=== PATIENT | female | born 1975 | race Caucasian/White ===

== ENCOUNTER 2020-09-07 09:28 | Emergency (ER) | payer BC, SELFPAY ==
--- NOTE | ~2020-09-07 | XR_ITS ---
EXAMINATION: XR CHEST CLINICAL INFORMATION: Chest pain. COMPARISON: Chest 08/26/2016 TECHNIQUE: Frontal view of the chest was obtained. FINDINGS: The lungs are well-expanded with platelike atelectasis in lingula. Rest of lungs are clear. The heart size and pulmonary vascularity is normal. No gross bony abnormality seen.. XR/XR chest 1V IMPRESSION: Platelike atelectasis in the lingula.
--- NOTE | ~2020-09-07 | CT_ITS ---
EXAMINATION: CT ANGIOGRAM OF THE CHEST WITH AND WITHOUT CONTRAST (CT PULMONARY ANGIOGRAM FOR PE) CLINICAL INFORMATION: Shortness of breath, bilateral leg swelling. 4 days . COMPARISON: Chest radiographs 09/07/2020, CT abdomen 03/12/2019 TECHNIQUE: Prior to contrast administration, noncontrast localization images were obtained. Subsequently, multidetector volumetric imaging was performed from the thoracic inlet to below the diaphragms following the administration of 71 mL Omnipaque 350 intravenous contrast. Sagittal, coronal, and MIP oblique sagittal reformatted images were obtained on the CT workstation, uploaded to PACS, and reviewed. This CT examination was performed using dose optimization techniques as appropriate, variously including the following: *Automated exposure control *Adjustment of mA and/or kV according to patient size (this includes techniques or standardized protocols for targeted exams where dose is matched to indication/reason for exam; i.e. extremities or head) *Use of iterative reconstruction technique Total exam dose-length product 580 mGy-cm FINDINGS: QUALITY OF STUDY/CONTRAST BOLUS: Satisfactory. PULMONARY ARTERIES: No central or segmental pulmonary emboli. THORACIC AORTA: No aneurysm or dissection. LUNG: Central airways are clear. There is no airspace consolidation or groundglass opacity. There is disc atelectasis left anterior lateral base. PLEURA: No pleural effusion or pneumothorax. MEDIASTINUM: Normal heart size. No pericardial effusion. No hilar or mediastinal lymphadenopathy. No evidence of septal bowing or right heart strain. There is some ghosting artifact around the root of the pulmonary artery and aorta, consistent with pulsation artifact. CHEST WALL/AXILLA: No axillary or internal mammary lymphadenopathy. OSSEOUS STRUCTURES: No acute or suspicious osseous abnormality. UPPER ABDOMEN: Unremarkable. No reflux of contrast into the hepatic veins to suggest elevated right heart pressures. CT/CT angio chest PE protocol IMPRESSION: 1. No pulmonary embolism. No thoracic aortic dissection. 2. Disc atelectasis left anterior base. No airspace consolidation, pneumothorax, or effusion. VTE: negative
--- NOTE | ~2020-09-07 | US_ITS ---
EXAMINATION: US VENOUS ULTRASOUND WITH DOPPLER LOWER EXTREMITY, BILATERAL CLINICAL INFORMATION: Shortness of breath and bilateral leg swelling. Status post 4 days . COMPARISON: None TECHNIQUE: Ultrasound of the deep veins is performed from the hip to the calf with compression sonography and color and pulse Doppler assessment. Spectral analysis with color-flow imaging is performed. FINDINGS: RIGHT: There is normal venous compression and respiratory variation and augmented flow. The visualized common femoral vein, superficial femoral vein, profunda femoral vein, popliteal vein, and the trifurcation region shows no evidence of deep venous thrombosis. The peroneal vein is not seen There is no significant popliteal fossa cyst. LEFT: There is normal venous compression and respiratory variation and augmented flow. The visualized common femoral vein, superficial femoral vein, profunda femoral vein, popliteal vein, and the trifurcation region shows no evidence of deep venous thrombosis. The peroneal vein is not seen. There is no significant popliteal fossa cyst. If the patient's symptoms persist, followup ultrasound in 5 days 7 days might be of value to exclude proximal propagation from a non-visualized calf vein. US/US venous duplex LE BI IMPRESSION: No DVT demonstrated in the bilateral lower extremity. Bilateral peroneal veins are not seen.
[2020-09-07 09:29] VITALS: BP 153/73; PULSE 105; RESP 18; TEMP 36.8; O2SAT 97; BMI 39.2
--- NOTE | 2020-09-07 10:05 | ECG_ITS ---
Test Reason : HEADACHE Blood Pressure : / mmHG Vent. Rate : 087 BPM Atrial Rate : 087 BPM P-R Int : 128 ms QRS Dur : 078 ms QT Int : 346 ms P-R-T Axes : 055 058 033 degrees QTc Int : 416 ms Normal sinus rhythm Normal ECG No previous ECGs available Referred By: Sheron Hammond Electronically Signed By:CHIQUITA ROBERTS
--- NOTE | 2020-09-07 10:16 | ED.HA ---
HPI - Headache General Chief Complaint: Headache Stated Complaint: headache Time Seen by Provider: 09/07/20 10:01 Source: patient Mode of arrival: ambulatory Limitations: no limitations History of Present Illness HPI Narrative: 45-year-old female who is [id number] s/p 4 days delivered at gestational age 38-1/2 weeks at [facility] on 09/04/2019 who had an epidural with a PMHx of asthma and kidney stones denying any other significant medical history although has not seen a PCP in over 1-2 years presenting to the ED with complaints of occipital headache worse with bending over forward where she reports the pain as a throbbing/tingling sensation with associated blurry vision, shortness of breath, epigastric abdominal pain and bilateral leg swelling since Saturday. Reports that she was seen by Anesthesia on Saturday when she reported her headache at [facility] and they reported that this was not consistent with post epidural headache therefore they gave her a Fioricet and she reports she had mild symptomatic relief although discontinue the Fioricet due to she is . MD elicited complaint: headache Pertinent past history: other (Status post 4 days) Onset (ago): day(s) (Three days) Onset description: gradually Location: occipital Quality & Timing: other (Throbbing/tingling sensation) Exacerbating factors: other (Bending over forward patient reports headache feels like it shifts when I bend over forward ) Relieving factors: other (mild relief with Fioricet) Context: recent spinal/epidural procedure (Although patient cannot recall if it started after the epidural procedure) Associated symptoms: other (Blurry vision, shortness of breath, epigastric abdominal pain and bilateral lower extremity edema) Treatments prior to arrival: none Related Data Allergies Allergy/AdvReac Type Severity Reaction Status Date / Time adhesive [ADHESIVE] Allergy Intermediate RASH Unverified 03/24/20 17:27 cobalt [COBALT] Allergy Unknown RASH Unverified 03/24/20 17:27 adhesives/ tapes Allergy Unknown rash Uncoded 07/22/18 00:00 Review of Systems Review of Systems: Constitutional : No changes in activity, No lethargy, No recent prior head injury, No agitation ENT/Mouth : No Ear Pain, No Nasal discharge/drainage Eyes: + Blurry Vision, No Eye Pain, No Swelling, No Redness, No Foreign Body Cardiovascular : + SOB, No Chest Pain, No CARRERA, No orthopnea Respiratory : No Cough Gastrointestinal : + epigastric abdominal pain, No Nausea, No Vomiting Genitourinary : No Dysuria, No Urinary Frequency, No Urinary Incontinence, No Urgency, No Flank Pain Musculoskeletal : + Joint swelling, No joint pain, No neck stiffness, No back pain/injury Skin : No lacerations Neuro : + Headache, No unsteady gait, No Paresthesias, No Loss of Consciousness, No altered mental status, No dizziness Denies past medical history of HIV, recent trauma, coagulopathy, new medication, URI symptoms, close contacts with similar symptoms, tick bite, or known CO2 exposure. Yes all other systems are reviewed and are negative [facility] Past Medical History Attestation statement: The following information was validated with the patient. Social History Social History Alcohol intake: never Smoking Status: Never smoker Physical Exam Vital Signs: Vital Signs: Last Vital Signs Temp 98.2 F 09/07/20 09:29 Pulse 91 09/07/20 12:49 Resp 16 09/07/20 12:49 BP 127/70 09/07/20 12:49 Pulse Ox 98 09/07/20 12:49 Body Mass Index 39.2 Vital signs have been reviewed as normal and appeared to be correct. Blood pressure hypertensive at 153/73 . Heart rate tachycardic at 105. Respiration rate normal. Temperature normal. Oxygen saturation normal. Appearance: Alert. Oriented X3. No acute distress. Head: Normal external exam. Normocephalic. Atraumatic. Able to rotate head bilaterally. Eyes: PERRLA. EOMI. No nystagmus noted. Conjunctiva and sclera normal. Eyelids normal. Corneal reflex normal. ENT: EAC normal. TM's Normal. Hearing normal. Pharynx normal. Uvula midline. tongue midline. Moist mucous membranes. No trismus noted. No drooling noted. No muffled voice noted. Neck: Normal inspection. Neck supple. FROM. No adenopathy. Thyroid Normal. No meningeal signs. No neck mass noted. No rashes/lesion/induration/fluctuance or signs infection noted. CVS: Normal heart rate and rhythm. Heart sound normal. No murmurs noted. Pulses normal throughout. Respiratory: No respiratory distress. Painless inspiration. Breath sounds normal. No wheezes/rales/rhonchi noted. Chest nontender. No accessory muscle usage noted or decreased air movement noted. Abdomen: Soft and mild tenderness to palpation to epigastric abdominal area. Nondistended. No guarding. No rigidity. Bowel sounds normal in all 4 quadrants. No distention noted. No organomegaly noted. No visible injury noted. No rebound tenderness. Negative Rovsing sign. Negative obturator's sign. Negative psoas sign. Negative Solorzano sign. Back: Normal external inspection. Full range of motion noted. Neuro intact bilateral and distally on all 4 extremities. Reflexes intact bilaterally and distally in all 4 extremities noted. No rashes/lesion/induration/fluctuance or signs infection noted. Skin: Skin warm and dry. Normal skin color. Normal skin turgor. No rashes/lesions/lacerations noted. Extremities: Bilateral lower extremity pitting edema +2 from the patient's knees to bilateral feet. + bilateral calf tenderness. Extremities exhibit normal range of motion. Extremities nontender. Able to shrug shoulders bilaterally and keep up against resistance. Neuro: Oriented X 3. No motor deficit. No sensory deficit. Reflexes normal. Moving all extremities. No focal motor deficits. Cranial nerves II-XI intact bilaterally. Facial strength normal. Normal cognition. Speech normal. Gait normal. Strength 5/5 throughout. No pronator drift. No tremor noted. No fasciculations noted. Muscle tone normal throughout. No asterixis noted. No rigidity noted. Course Course Course Narrative: 10:45am - 45-year-old female who is [id number] s/p 4 days delivered at gestational age 38-1/2 weeks at [facility] on 09/04/2019 who had an epidural presenting to the ED with complaints of throbbing/tingling occipital headache worse with bending over forward with associated blurry vision, shortness of breath, epigastric abdominal pain and lower extremity swelling for the past 4 days. - on exam patient has no focal neuro deficits. Is noted to be hypertensive at 153/73 and tachycardic at 105 otherwise all other vitals are within normal limits including acid and saturation at 97% on room air. Not in any acute distress. Mild epigastric abdominal pain. Is noted to have bilateral pitting edema from the knees to the bilateral feet. - Concern for preeclampsia vs cardiomyopathy vs pulmonary embolism vs DVT - Plan: Labs, CTA of chest for PE, b/l lower extremity duplex ultrasounds to evaluate for DVT, EKG. Provide 650 mg of p.o. Tylenol for the patient's headache. I consulted with OBGYN Dr. Yoon who came down and evaluated the patient and recommended placing a Hughes catheter in the patient along with starting the patient on IV magnesium 4 g loading dose over 20 minutes then 2 g of magnesium IV per hour keeping the fluids less than 120 cc/hour. Plan is to transfer to [facility] for further evaluation and treatment for possible preeclampsia. Patient understood this and agreed with the plan. Will re-evaluate. Reevaluation(s) Reevaluation #1: - Patient with mild anemia RBC at 3.56, hemoglobin 8.6, hematocrit 25.7 - high sensitivity troponin 5.7 patient will need a repeat in 3 hours at 13:30pm - calcium 8.2 - AST/ALT/alkaline phosphate 35/45/128 - total protein 5.5 - albumin 3.0 - all other labs are within normal limits. - COVID swab negative. - CXR revealed platelet like atelectasis in the lingula otherwise no other acute processes such as pulmonary edema noted at this time. - awaiting CTA of chest for PE, bilateral lower duplex ultrasound and UA - I consulted with [facility] and they accepted the patient for further evaluation and treatment for preeclampsia the admitting doctor will be Angie Sandhu Time: 11:59 Reevaluation #2: - EMS arrived at this time. CTA of chest for PE is negative. - patient awaiting results for bilateral duplex ultrasounds of lower extremities although patient being transferred at this time to [facility] for further evaluation and treatment. Patient understands agrees with this plan. Time: 13:32 [facility] - Headache Medical Records Attestation: I reviewed the patient's medical records. Lab Data Attestation: I reviewed the patient's lab results. Result diagrams: 09/07/20 10:24 09/07/20 10:24 Labs: Lab Results 09/07/20 09/07/20 09/07/20 Range/Units 10:23 10:24 10:24 WBC 7.9 (4.8-10.8) X10*3/uL RBC 3.56 L (4.20-5.50) X10*6/uL Hgb 8.6 L (12.0-16.0) g/dl Hct 25.7 L (37-47) % MCV 72.2 L (80-98) fL MCH 24.2 L (27.0-33.0) pg MCHC 33.5 (31.0-35.0) g/dl RDW 16.6 H (11.0-16.0) % Plt Count 204 (160-400) X10*3/uL MPV 11.2 (9.4-12.3) fL Immature Gran % (Auto) 1.4 H (0.0-0.4) % Neut % (Auto) 66.4 (45-73) % Lymph % (Auto) 24.4 (20-40) % Crowley % (Auto) 6.4 (2-11) % Eos % (Auto) 1.0 (0-4) % Baso % (Auto) 0.4 (0-2) % Lymph # (Auto) 1.9 (1.2-4.9) X10*3/uL Crowley # (Auto) 0.5 (0.1-1.2) X10*3/uL Eos # (Auto) 0.1 (0.0-0.4) X10*3/uL Baso # (Auto) 0.0 (0.0-0.2) X10*3/uL Abs Immat Gran (auto) 0.11 H (0.00-0.03) X10*3/uL Absolute Neuts (auto) 5.3 (2.0-8.3) X10*3/uL Absolute Nucleated RBC 0.030 H (0.0-0.012) X10*3/uL Nucleated RBC % (auto) 0.4 H (0.0-0.2) /100WBC PT 10.6 L (10.8-13.0) SEC INR 0.9 (0.9-1.1) APTT 24.4 (24.1-38.0) SEC Sodium (135-145) mmol/L Potassium (3.3-5.1) mmol/L Chloride (96-108) mmol/L Carbon Dioxide (22-29) mmol/L Anion Gap (12-20) BUN (9-16) mg/dL Creatinine (0.5-1.4) mg/dL Estim Creat Clear Calc Estimated GFR Random Glucose (60-115) mg/dL Calcium (8.4-10.2) mg/dL Magnesium (1.6-2.6) mg/dL Total Bilirubin (0.0-1.0) mg/dL Direct Bilirubin (0.0-0.5) mg/dL AST (5-31) U/L ALT (0-31) U/L Alkaline Phosphatase (39-117) U/L Troponin I High Sens (<3.5-17.0) ng/L B-Natriuretic Peptide (<100) pg/mL Total Protein (6.5-8.0) g/dL Albumin (3.5-5.0) g/dL Lipase (8-78) U/L COVID-19 (SILAS) Negative (Negative) COVID-19 Clin Com See Note 09/07/20 09/07/20 Range/Units 10:24 10:24 WBC (4.8-10.8) X10*3/uL RBC (4.20-5.50) X10*6/uL Hgb (12.0-16.0) g/dl Hct (37-47) % MCV (80-98) fL MCH (27.0-33.0) pg MCHC (31.0-35.0) g/dl RDW (11.0-16.0) % Plt Count (160-400) X10*3/uL MPV (9.4-12.3) fL Immature Gran % (Auto) (0.0-0.4) % Neut % (Auto) (45-73) % Lymph % (Auto) (20-40) % Crowley % (Auto) (2-11) % Eos % (Auto) (0-4) % Baso % (Auto) (0-2) % Lymph # (Auto) (1.2-4.9) X10*3/uL Crowley # (Auto) (0.1-1.2) X10*3/uL Eos # (Auto) (0.0-0.4) X10*3/uL Baso # (Auto) (0.0-0.2) X10*3/uL Abs Immat Gran (auto) (0.00-0.03) X10*3/uL Absolute Neuts (auto) (2.0-8.3) X10*3/uL Absolute Nucleated RBC (0.0-0.012) X10*3/uL Nucleated RBC % (auto) (0.0-0.2) /100WBC PT (10.8-13.0) SEC INR (0.9-1.1) APTT (24.1-38.0) SEC Sodium 135 (135-145) mmol/L Potassium 4.1 (3.3-5.1) mmol/L Chloride 103 (96-108) mmol/L Carbon Dioxide 25 (22-29) mmol/L Anion Gap 11 L (12-20) BUN 15 (9-16) mg/dL Creatinine 0.60 (0.5-1.4) mg/dL Estim Creat Clear Calc 145.4 Estimated GFR > 60 Random Glucose 90 (60-115) mg/dL Calcium 8.2 L (8.4-10.2) mg/dL Magnesium 1.8 (1.6-2.6) mg/dL Total Bilirubin 0.4 (0.0-1.0) mg/dL Direct Bilirubin < 0.2 (0.0-0.5) mg/dL AST 35 H (5-31) U/L ALT 45 H (0-31) U/L Alkaline Phosphatase 128 H (39-117) U/L Troponin I High Sens 5.7 (<3.5-17.0) ng/L B-Natriuretic Peptide 83 (<100) pg/mL Total Protein 5.5 L (6.5-8.0) g/dL Albumin 3.0 L (3.5-5.0) g/dL Lipase 24 (8-78) U/L COVID-19 (SILAS) (Negative) COVID-19 Clin Com Imaging Data Chest x-ray: Attestation: I personally reviewed and interpreted this imaging study as follows: Radiologist's impression: FINDINGS: The lungs are well-expanded with platelike atelectasis in lingula. Rest of lungs are clear. The heart size and pulmonary vascularity is normal. No gross bony abnormality seen.. XR/XR chest 1V IMPRESSION: Platelike atelectasis in the lingula. CTA of chest for PE: Attestation: I personally reviewed and interpreted this imaging study as follows: Radiologist's impression: FINDINGS: QUALITY OF STUDY/CONTRAST BOLUS: Satisfactory. PULMONARY ARTERIES: No central or segmental pulmonary emboli. THORACIC AORTA: No aneurysm or dissection. LUNG: Central airways are clear. There is no airspace consolidation or groundglass opacity. There is disc atelectasis left anterior lateral base. PLEURA: No pleural effusion or pneumothorax. MEDIASTINUM: Normal heart size. No pericardial effusion. No hilar or mediastinal lymphadenopathy. No evidence of septal bowing or right heart strain. There is some ghosting artifact around the root of the pulmonary artery and aorta, consistent with pulsation artifact. CHEST WALL/AXILLA: No axillary or internal mammary lymphadenopathy. OSSEOUS STRUCTURES: No acute or suspicious osseous abnormality. UPPER ABDOMEN: Unremarkable. No reflux of contrast into the hepatic veins to suggest elevated right heart pressures. CT/CT angio chest PE protocol IMPRESSION: 1. No pulmonary embolism. No thoracic aortic dissection. 2. Disc atelectasis left anterior base. No airspace consolidation, pneumothorax, or effusion. VTE: negative Bilateral lower extremity duplex ultrasound: Attestation: I personally reviewed and interpreted this imaging study as follows: Radiologist's impression: RIGHT: There is normal venous compression and respiratory variation and augmented flow. The visualized common femoral vein, superficial femoral vein, profunda femoral vein, popliteal vein, and the trifurcation region shows no evidence of deep venous thrombosis. The peroneal vein is not seen There is no significant popliteal fossa cyst. LEFT: There is normal venous compression and respiratory variation and augmented flow. The visualized common femoral vein, superficial femoral vein, profunda femoral vein, popliteal vein, and the trifurcation region shows no evidence of deep venous thrombosis. The peroneal vein is not seen. There is no significant popliteal fossa cyst. If the patient's symptoms persist, followup ultrasound in 5 days 7 days might be of value to exclude proximal propagation from a non-visualized calf vein. US/US venous duplex LE BI IMPRESSION: No DVT demonstrated in the bilateral lower extremity. Bilateral peroneal veins are not seen. ECG Data Attestation: I personally reviewed and interpreted this ECG as follows: ECG interpretation date: 09/07/20 ECG interpretation time: 10:16 Interpretation: Normal sinus rhythm with a ventricular rate of [address] interval normal QRS duration normal QT/QTC interval. No acute ischemic changes noted. No prior EKGs in our system to compare to at this time. Critical Care Time Critical Care Time Critical Care Time: Yes Total Critical Care Time: 60 Attestation: I personally attest to this time spent taking care of the patient Discharge Plan Discharge Clinical Impression: Pre-eclampsia, headache, Bilateral edema of lower extremity Patient Disposition: er [facility] Transfer Details: transfer to [facility] Interventions: Acute Care Transfer Worksheet (ED) Last Done: 09/07/20 13:53 Discharge Date/Time: 09/07/20 14:00
--- NOTE | 2020-09-07 10:27 | PC.NURSE ---
iv established, blood labs obtained and sent, awaiting cta and us to r/o dvt
[2020-09-07 10:30] LABS: MANUAL DIFF FLAG NO
[2020-09-07 10:34] LABS: Basophils Percent Auto 0.4 % (0-2); Eosinophils Absolute Auto 0.1 X10*3/uL (0.0-0.4); Hematocrit 25.7 % (37-47); Hemoglobin 8.6 g/dl (12.0-16.0); Imm Gran Abs Auto 0.11 X10*3/uL (0.00-0.03); Imm Gran Pct Auto 1.4 % (0.0-0.4); Lymphocytes Absolute Auto 1.9 X10*3/uL (1.2-4.9); Lymphocytes Percent Auto 24.4 % (20-40); Mean Corpuscular HGB Conc 33.5 g/dl (31.0-35.0); Mean Corpuscular Hemoglobin 24.2 pg (27.0-33.0); Mean Corpuscular Volume 72.2 fL (80-98); Mean Platelet Volume 11.2 fL (9.4-12.3); Monocytes Absolute Auto 0.5 X10*3/uL (0.1-1.2); Monocytes Percent Auto 6.4 % (2-11); NRBC Pct Auto 0.4 /100WBC (0.0-0.2); Neutrophils Absolute Auto 5.3 X10*3/uL (2.0-8.3); Neutrophils Percent Auto 66.4 % (45-73); Platelet Count 204 X10*3/uL (160-400); Red Blood Count 3.56 X10*6/uL (4.20-5.50); Red Cell Distribution Width 16.6 % (11.0-16.0); White Blood Count 7.9 X10*3/uL (4.8-10.8)
[2020-09-07 10:41] LABS: INTERNATIONAL NORM RATIO 0.9 (0.9-1.1); Prothrombin Time 10.6 SEC (10.8-13.0)
--- NOTE | 2020-09-07 10:41 | PC.NURSE ---
dr gupta at bedside. plan to have pt transferred to [facility] d/t ?preeclampsia. awaiting loading dose magnesium from pharmacy.
[2020-09-07 10:43] LABS: Partial Thromboplastin Time 24.4 SEC (24.1-38.0)
[2020-09-07 10:47] LABS: COVID-19 Test Negative (Negative)
--- NOTE | 2020-09-07 10:47 | PC.NURSE ---
pharmacy called about non formulary dose of magnesium. pt to recieve 2g over ten minutes and immediately following another 2g over 10 min as a loading dose. pt to receive 2g magnesium/hr after loading dose. plan for cta and transfer to [facility]. pt tearful att d/t nervousness about situation. given reassurance by ob and ed pa.
--- NOTE | 2020-09-07 10:49 | PM.OBCN ---
OB Consult Note - [facility] Data Service Date: 09/07/20 Primary Care Provider: Celia Vargas MD Narrative I was consulted regarding Trena Lam who is a 45 year old female who presented to the emergency room 4 days with headache blurring of vision and epigastric pain with shortness of breath associated with chest pressure. The patient has noticed since delivery that her lower extremity edema is getting worse history is not complicated with any obstetrical problems no history of hypertension gestational diabetes labor and no history of high preeclampsia or gestational hypertension a previous 3 deliveries. The patient does not have a history of chronic hypertension either. The patient received epidural anesthesia and developed headache day 1 the headache is not worse when standing up, Anesthesia was consulted and ruled out wet tap as a cause of her headache. But the patient was started on Fioricet and was discharged home [employer] - Review of Systems Review of Systems ROS Unobtainable: All systems reviewed & are unremarkable except as noted in HPI and below OB PMFSH Social History Social History Alcohol intake: never Smoking Status: Never smoker Use of substances other than those prescribed or required for medical reasons: No Advance Directives: No Advance Directives Information Provided: No Meds Allergies Allergy/AdvReac Type Severity Reaction Status Date / Time adhesive [ADHESIVE] Allergy Intermediate RASH Unverified 03/24/20 17:27 cobalt [COBALT] Allergy Unknown RASH Unverified 03/24/20 17:27 adhesives/ tapes Allergy Unknown rash Uncoded 07/22/18 00:00 OB Physical Exam Physical Exam Constitutional: No apparent distress Cardiovascular: Normal S1, S2 and Regular rhythm Respiratory: Clear to auscultation Gastrointestinal: Tender (Epigastric tenderness, no right upper quadrant tenderness) Additional Comments: Lower extremity bilateral +3 edema OB Consult Results Labs CBC & Chem 7: 09/07/20 10:24 09/07/20 10:24 Labs: Short CBC 09/07/20 Range/Units 10:24 WBC 7.9 (4.8-10.8) X10*3/uL Hgb 8.6 L (12.0-16.0) g/dl Hct 25.7 L (37-47) % Plt Count 204 (160-400) X10*3/uL OB - CN: A/P Assessment and Plan (1) Gestational hypertension: Problem details: with severe features Status: Acute Assessment and Plan: Since the patient has hypertension with the headache not explained by wet tap patient fits criteria for severe feature will start magnesium sulfate 4 g loading dose over 20 minutes then maintenancedose 2 grams/hour, I and O, total input less than 120 cc/hour, Hughes catheter to monitor urine output, and transferred to [facility] (2) Shortness of breath: Status: Acute Assessment and Plan: Will proceed with CTA to rule out be as a cause of shortness of breath and chest pressure
[2020-09-07 10:50] VITALS: BP 138/78; PULSE 88; RESP 18; O2SAT 98
[2020-09-07 11:01] LABS: Alanine Aminotransferase 45 U/L (0-31); Alkaline Phosphatase 128 U/L (39-117); Anion Gap 11 (12-20); Aspartate Amino Transferase 35 U/L (5-31); Bilirubin Direct < 0.2 mg/dL (0.0-0.5); Bilirubin Total 0.4 mg/dL (0.0-1.0); Blood Urea Nitrogen 15 mg/dL (9-16); Calcium 8.2 mg/dL (8.4-10.2); Carbon Dioxide 25 mmol/L (22-29); Chloride 103 mmol/L (96-108); Creatinine Clr Calc Pharmacy 145.4; Estimated Glomerular Filt Rate > 60; Glucose Random 90 mg/dL (60-115); Lipase 24 U/L (8-78); Magnesium 1.8 mg/dL (1.6-2.6); Potassium 4.1 mmol/L (3.3-5.1); Sodium 135 mmol/L (135-145); Total Protein 5.5 g/dL (6.5-8.0)
--- NOTE | 2020-09-07 11:05 | PC.NURSE ---
pt ambulated to and from bathroom w steady gait.
[2020-09-07 11:09] LABS: B Type Natriuretic Peptide 83 pg/mL (<100); Troponin-I High Sensitivity 5.7 ng/L (<3.5-17.0)
[2020-09-07] MEDS: iohexoL 350 MG/ML 100 ML INFUS..BTL 71 ML IV (11:35)
[2020-09-07] MEDS: Magnesium Sulfate/H2O 2 GM/50 ML PIGGYBACK IV ×3 (11:36→11:55)
[2020-09-07] MEDS: Acetaminophen 325 MG TABLET 650 MG PO (11:46)
[2020-09-07 12:49] VITALS: BP 127/70; PULSE 91; RESP 16; O2SAT 98
== END 2020-09-07 14:00 | disposition short-term general hospital (02) ==
PROVIDERS: Emergency Provider Emergency Medicine; PCP Internal Medicine
DX: O14.95 Unspecified pre-eclampsia, complicating the puerperium (principal); R51.9 Headache, unspecified; O99.43 Diseases of the circulatory system complicating the puerperium; R00.0 Tachycardia, unspecified; O99.53 Diseases of the respiratory system complicating the puerperium; J45.909 Unspecified asthma, uncomplicated; R60.0 Localized edema; R06.02 Shortness of breath; R10.13 Epigastric pain; Z87.442 Personal history of urinary calculi; Z20.822 Contact with and (suspected) exposure to COVID-19
CPT/HCPCS: 36415; 51702; 71045; 71275; 80048; 80076; 83690; 83735; 83880; 84484; 85025; 85610; 85730; 87635; 93005; 93970; 96365; 96366; 99283; 99285; 99291; J3475; Q9967